=== PATIENT | female | born 1935 | race Caucasian/White ===

== ENCOUNTER 2020-06-20 05:16 | Emergency (ER) | payer MEDICARE, OTHER ==
[2020-06-20 07:33] LABS: HEMOGLOBIN 10.7 gm/dl (12.3-15.3); RED BLOOD COUNT 3.65 M/UL (4.00-5.10); WHITE BLOOD COUNT 6.3 K/UL (4.5-11.0)
[2020-06-20 07:53] LABS: BUN/CREATININE RATIO 18 (0-10)
== END 2020-06-20 10:45 | disposition home or self-care (01) ==
LOC: ER1 05:16
PROVIDERS: Family Medicine
DX: R53.83 Other fatigue (principal); R06.02 Shortness of breath; D64.9 Anemia, unspecified; E11.9 Type 2 diabetes mellitus without complications; I11.0 Hypertensive heart disease with heart failure; I50.9 Heart failure, unspecified; E03.9 Hypothyroidism, unspecified; K21.9 Gastro-esophageal reflux disease without esophagitis; E78.5 Hyperlipidemia, unspecified; Z79.4 Long term (current) use of insulin; Z85.9 Personal history of malignant neoplasm, unspecified; Z79.899 Other long term (current) drug therapy; Z87.19 Personal history of other diseases of the digestive system
CPT/HCPCS: 80053; 81001; 82550; 82553; 83874; 84439; 84443; 84484; 85025; 87086; 99285

== ENCOUNTER 2021-11-06 07:40 | Emergency (ER) | payer MEDICARE, OTHER ==
[2021-11-06 08:25] LABS: HEMOGLOBIN 10.2 gm/dl (12.3-15.3); RED BLOOD COUNT 3.48 M/UL (4.00-5.10); WHITE BLOOD COUNT 7.9 K/UL (4.5-11.0)
== END 2021-11-06 10:32 | disposition home or self-care (01) ==
LOC: ER1 07:40
PROVIDERS: Emergency Medicine
DX: M51.35 Other intervertebral disc degeneration, thoracolumbar region (principal); M50.321 Other cervical disc degeneration at C4-C5 level; R51.9 Headache, unspecified; E11.22 Type 2 diabetes mellitus with diabetic chronic kidney disease; N18.9 Chronic kidney disease, unspecified; I50.9 Heart failure, unspecified; D63.1 Anemia in chronic kidney disease; Z90.49 Acquired absence of other specified parts of digestive tract
CPT/HCPCS: 70450; 72125; 72128; 72131; 80053; 81001; 82550; 82553; 84484; 85025; 99284

== ENCOUNTER 2021-11-19 11:30 | Inpatient (IN) | payer MEDICARE, OTHER ==
[~2021-11-19] VITALS: Ht 157.5 cm; Wt 54.0 kg
[2021-11-19 13:05] LABS: RED BLOOD COUNT 3.04 M/UL (4.00-5.10); WHITE BLOOD COUNT 8.9 K/UL (4.5-11.0)
[2021-11-19] MEDS ORDERED: CLONIDINE HCL0.3 MG PO (17:22)
[2021-11-19] MEDS ORDERED: OMEPRAZOLE40 MG PO (17:24)
[2021-11-19] MEDS ORDERED: TERAZOSIN HCL10 MG PO (17:25)
[2021-11-19] MEDS ORDERED: HYDRALAZINE HC100 MG PO (17:26)
[2021-11-19] MEDS ORDERED: PRAVASTATIN SOD40 MG PO (17:26)
[2021-11-19] MEDS ORDERED: VITAMIN E100 UNI2 PO (17:27)
[2021-11-19] MEDS ORDERED: VITAMIN B-12500 MCG PO (17:27)
[2021-11-19] MEDS ORDERED: FOLIC ACID1 MG PO (17:27)
[2021-11-20 04:46] LABS: HEMOGLOBIN 9.3 gm/dl (12.3-15.3); RED BLOOD COUNT 3.11 M/UL (4.00-5.10); WHITE BLOOD COUNT 9.5 K/UL (4.5-11.0)
--- NOTE | 2021-11-20 14:43 | NUR ---
PATIENT HAS BP OF 218/57 WITH HEART RATE OF 57. BP WAS RETAKEN AND FOUND TO BE 214/55 WITH HEART RATE OF 55. PROVIDER NOTIFIED AND ORDERED 0.2 MG CLONADINE ONCE WITH A RECHECK OF BP IN ONE HOUR. WILL CONTINUE TO MONITOR.
[2021-11-21 02:37] LABS: HEMOGLOBIN 9.3 gm/dl (12.3-15.3); RED BLOOD COUNT 3.08 M/UL (4.00-5.10); WHITE BLOOD COUNT 11.3 K/UL (4.5-11.0)
[2021-11-22 06:30] LABS: WHITE BLOOD COUNT 8.8 K/UL (4.5-11.0)
[2021-11-22 06:32] LABS: RED BLOOD COUNT 2.67 M/UL (4.00-5.10)
[2021-11-22] MEDS ORDERED: CATAPRES 0.1MG0.1 MG PO ×2 (13:19→15:03)
[2021-11-22] MEDS ORDERED: ASPIRIN EC81 MG PO (13:19)
[2021-11-22] MEDS ORDERED: AMLODIPINE BESYL5 MG PO (13:19)
[2021-11-22] MEDS ORDERED: HYDRALAZINE HCL50 MG PO (15:03)
== END 2021-11-22 16:36 | disposition home or self-care (01) | DRG 312 ==
LOC: ER1 11:30 → CDU 15:10 → M/S 15:10
PROVIDERS: Nurse Practitioner; Physician Assistant; ADMIT Internal Medicine
PROC: B24BZZZ Ultrasonography of Heart with Aorta (ICD-10-PCS; principal; 2021-11-20)
DX: I95.1 Orthostatic hypotension (principal); N17.9 Acute kidney failure, unspecified; N18.4 Chronic kidney disease, stage 4 (severe); Z20.822 Contact with and (suspected) exposure to COVID-19; Z66 Do not resuscitate; I13.0 Hypertensive heart and chronic kidney disease with heart failure and stage 1 through stage 4 chronic kidney disease, or unspecified chronic kidney disease; E87.1 Hypo-osmolality and hyponatremia; R00.1 Bradycardia, unspecified; I25.10 Atherosclerotic heart disease of native coronary artery without angina pectoris; E87.5 Hyperkalemia; R29.6 Repeated falls; D63.1 Anemia in chronic kidney disease; I50.9 Heart failure, unspecified; E11.22 Type 2 diabetes mellitus with diabetic chronic kidney disease; E86.1 Hypovolemia; E03.9 Hypothyroidism, unspecified; I44.0 Atrioventricular block, first degree; I08.1 Rheumatic disorders of both mitral and tricuspid valves; Z79.82 Long term (current) use of aspirin; Z85.828 Personal history of other malignant neoplasm of skin; Z90.49 Acquired absence of other specified parts of digestive tract; Z88.8 Allergy status to other drugs, medicaments and biological substances; Z88.6 Allergy status to analgesic agent; Z82.3 Family history of stroke; Z80.9 Family history of malignant neoplasm, unspecified; Z83.3 Family history of diabetes mellitus
CPT/HCPCS: ECHO; 0240U; 36415; 70450; 71045; 80048; 80053; 81001; 81256; 82140; 82533; 82550; 82553; 82607; 82728; 82746; 82962; 83036; 83540; 83550; 83605; 83735; 83880; 84100; 84439; 84443; 84484; 84550; 85025; 87040; 87086; 93005; 93270; 93306; 96374; 97161; 97165; 99285

== ENCOUNTER 2021-12-08 10:24 | Inpatient (IN) | payer MEDICARE, OTHER ==
[~2021-12-08] VITALS: Ht 160 cm; Wt 65.6 kg
[~2021-12-08 10:24] MED LIST: AMLODIPINE BESYL5 MG PO; ASPIRIN EC81 MG PO; CATAPRES 0.1MG0.1 MG PO; CLONIDINE HCL0.3 MG PO; FOLIC ACID1 MG PO; HYDRALAZINE HC100 MG PO; HYDRALAZINE HCL50 MG PO; OMEPRAZOLE40 MG PO; PRAVASTATIN SOD40 MG PO; TERAZOSIN HCL10 MG PO; VITAMIN B-12500 MCG PO; VITAMIN E100 UNI2 PO
[2021-12-08 13:21] LABS: HEMOGLOBIN 7.6 gm/dl (12.3-15.3); RED BLOOD COUNT 2.52 M/UL (4.00-5.10); WHITE BLOOD COUNT 9.3 K/UL (4.5-11.0)
[2021-12-08] MEDS ORDERED: LEVOTHYROXINE75 MCG PO (15:37)
[2021-12-08] MEDS ORDERED: HUMALOG MI100 UNIT/3 SQ (15:37)
[2021-12-09 02:15] LABS: WHITE BLOOD COUNT 7.8 K/UL (4.5-11.0)
[2021-12-09 02:21] LABS: RED BLOOD COUNT 2.23 M/UL (4.00-5.10)
[2021-12-09 02:23] LABS: HEMOGLOBIN 6.6 gm/dl (12.3-15.3)
[2021-12-09 14:17] LABS: HEMOGLOBIN 8.5 gm/dl (12.3-15.3)
[2021-12-10 02:06] LABS: HEMOGLOBIN 7.8 gm/dl (12.3-15.3); WHITE BLOOD COUNT 7.4 K/UL (4.5-11.0)
[2021-12-10 02:09] LABS: RED BLOOD COUNT 2.58 M/UL (4.00-5.10)
[2021-12-11 03:07] LABS: HEMOGLOBIN 7.7 gm/dl (12.3-15.3); RED BLOOD COUNT 2.47 M/UL (4.00-5.10); WHITE BLOOD COUNT 7.3 K/UL (4.5-11.0)
[2021-12-12 04:36] LABS: HEMOGLOBIN 7.4 gm/dl (12.3-15.3); RED BLOOD COUNT 2.5 M/UL (4.00-5.10); WHITE BLOOD COUNT 6.9 K/UL (4.5-11.0)
[2021-12-13 02:19] LABS: HEMOGLOBIN 7.4 gm/dl (12.3-15.3); RED BLOOD COUNT 2.46 M/UL (4.00-5.10); WHITE BLOOD COUNT 7.1 K/UL (4.5-11.0)
[2021-12-14] MEDS ORDERED: BUMETANIDE1 MG PO (11:38)
[2021-12-14] MEDS ORDERED: COZAAR100 MG PO (11:38)
== END 2021-12-14 15:10 | disposition home or self-care (01) | DRG 682 ==
LOC: ER1 10:24 → PROG CARE 15:02 → CDU 15:02 → PROG CARE 20:01
PROVIDERS: Emergency Medicine; Internal Medicine; Internal Medicine Infectious Disease; Internal Medicine Nephrology; Physician Assistant; ADMIT Internal Medicine
DX: N17.9 Acute kidney failure, unspecified (principal); I50.33 Acute on chronic diastolic (congestive) heart failure; E87.1 Hypo-osmolality and hyponatremia; I13.0 Hypertensive heart and chronic kidney disease with heart failure and stage 1 through stage 4 chronic kidney disease, or unspecified chronic kidney disease; E87.2 Acidosis; E11.22 Type 2 diabetes mellitus with diabetic chronic kidney disease; I44.1 Atrioventricular block, second degree; E78.5 Hyperlipidemia, unspecified; I08.1 Rheumatic disorders of both mitral and tricuspid valves; K21.9 Gastro-esophageal reflux disease without esophagitis; K64.4 Residual hemorrhoidal skin tags; E03.9 Hypothyroidism, unspecified; D63.1 Anemia in chronic kidney disease; N18.4 Chronic kidney disease, stage 4 (severe); I25.10 Atherosclerotic heart disease of native coronary artery without angina pectoris; Z79.01 Long term (current) use of anticoagulants; Z79.82 Long term (current) use of aspirin; Z79.4 Long term (current) use of insulin; Z85.828 Personal history of other malignant neoplasm of skin; Z90.49 Acquired absence of other specified parts of digestive tract; Z88.8 Allergy status to other drugs, medicaments and biological substances; Z88.1 Allergy status to other antibiotic agents; Z82.3 Family history of stroke; Z82.49 Family history of ischemic heart disease and other diseases of the circulatory system; Z80.9 Family history of malignant neoplasm, unspecified
CPT/HCPCS: 36415; 36430; 71045; 80048; 80053; 82436; 82525; 82550; 82553; 82668; 82728; 82962; 83540; 83550; 83735; 83880; 83935; 84133; 84300; 84484; 84630; 85014; 85018; 85025; 85027; 86850; 86900; 86901; 86920; 93005; 93880; 96374; 99285; J0360; J7050; P9016; Q0177

== ENCOUNTER 2021-12-30 03:17 | Inpatient (IN) | payer MEDICARE, OTHER ==
[~2021-12-30] VITALS: Ht 160 cm; Wt 63.5 kg
[~2021-12-30 03:17] MED LIST changes: +BUMETANIDE1 MG PO; +COZAAR100 MG PO; +HUMALOG MI100 UNIT/3 SQ; +LEVOTHYROXINE75 MCG PO
[2021-12-30 03:37] LABS: HEMOGLOBIN 7.4 gm/dl (12.3-15.3); RED BLOOD COUNT 2.45 M/UL (4.00-5.10); WHITE BLOOD COUNT 10.2 K/UL (4.5-11.0)
[2021-12-30] MEDS ORDERED: BUMETANIDE2 MG PO (08:45)
[2021-12-30] MEDS ORDERED: ZAROXOLYN/DIULO5 MG PO (08:47)
[2021-12-31 06:35] LABS: WHITE BLOOD COUNT 8.2 K/UL (4.5-11.0)
[2021-12-31 06:38] LABS: RED BLOOD COUNT 2.11 M/UL (4.00-5.10)
[2021-12-31 06:40] LABS: HEMOGLOBIN 6.3 gm/dl (12.3-15.3)
[2022-01-01 03:59] LABS: HEMOGLOBIN 8.7 gm/dl (12.3-15.3); RED BLOOD COUNT 2.92 M/UL (4.00-5.10); WHITE BLOOD COUNT 7.8 K/UL (4.5-11.0)
[2022-01-01 08:09] LABS: COMPLEMENT C3, SERUM 84 mg/dL (82-167); COMPLEMENT C4, SERUM 20 mg/dL (12-38)
--- NOTE | 2022-01-01 14:15 | NUR ---
PATIENT HAD BP OF 177/60 PROVIDER NOTIFIED. AFTER CHANGE TO MEDIATIONS AND NURSING COMMUNICATION PROVIDER ORDERED IVP HYDRALAZINE. ONE HOUR POST ADMINISTRATION, PATIENT WAS FOUND TO HAVE BP OF 146/50. WCTM.
[2022-01-02 03:41] LABS: HEMOGLOBIN 8.7 gm/dl (12.3-15.3); RED BLOOD COUNT 2.86 M/UL (4.00-5.10)
[2022-01-02 14:10] LABS: A/G RATIO 1.3 (0.7-1.7); ALBUMIN 2.5 g/dL (2.9-4.4); ALPHA-1-GLOBULIN 0.2 g/dL (0.0-0.4); ALPHA-2-GLOBULIN 0.5 g/dL (0.4-1.0); BETA GLOBULIN 0.6 g/dL (0.7-1.3); GAMMA GLOBULIN 0.7 g/dL (0.4-1.8); IMMUNOGLOBULIN A, QN, SERUM 68 mg/dL (64-422); IMMUNOGLOBULIN G, QN, SERUM 727 mg/dL (586-1602); IMMUNOGLOBULIN M, QN, SERUM 77 mg/dL (26-217); M-SPIKE Not Observed g/dL (Not Observed); PROTEIN, TOTAL, SERUM 4.5 g/dL (6.0-8.5)
--- NOTE | 2022-01-02 15:00 | NUR ---
PATIENT HAD 2.3 SECOND PAUSE REPORTED BY TELEMETRY. HOSPITALIST NOTIFIED. STATED "CARDIOLOGY IS FOLLOWING HER, NOTIFY THEM." JEFFERSON VALADEZ CALLED AND NOTIFIED OF PATIENTS PAUSE. WILL CONTINUE TO MONITOR.
[2022-01-02 19:11] LABS: ANTI-DSDNA ANTIBODIES 3 IU/mL (0-9); ANTIMYELOPEROXIDASE (MPO) ABS <0.2 units (0.0-0.9); ANTIPROTEINASE 3 (PR-3) ABS <0.2 units (0.0-0.9); ATYPICAL PANCA <1:20 titer (Neg:<1:20); CYTOPLASMIC (C-ANCA) <1:20 titer (Neg:<1:20); PERINUCLEAR (P-ANCA) <1:20 titer (Neg:<1:20)
[2022-01-03 04:44] LABS: HEMOGLOBIN 9.3 gm/dl (12.3-15.3); RED BLOOD COUNT 3.12 M/UL (4.00-5.10); WHITE BLOOD COUNT 9.2 K/UL (4.5-11.0)
--- NOTE | 2022-01-03 05:38 | NUR ---
PATIENT WAS OBSERVED WALKING. BED ALARM WAS ACTIVATED WHEN PATIENT WENT BACK TO BED BECAUSE PATIENT HAS AN UNSTEADY GAIT. PATIENT BECAME UPSET AND STATED THAT SHE WAS CAPABLE OF WALKING WITHOUT FALLING. THE RISK OF FALLING AND THE USE OF THE BED ALARM WAS EXPLAINED AT LENGTH TO PATIENT. PATIENT STATED SHE WOULD REPORT ME FOR DOING SO. PATIENT VERBALIZED HER UNDERSTANDING OF THE EDUCATION GIVEN, AND SINCE PATIENT IS ALERT AND ORIENTED, I DEACTIVATED THE BED ALARM AND INSTRUCTED THE PAITENT TO CALL IF SHE NEEDED ASSISTANCE.
[2022-01-03 07:16] LABS: FOLATE (FOLIC ACID), SERUM >20.0 ng/mL (>3.0)
[2022-01-03 08:14] LABS: HEMOGLOBIN A1C 7.8 % (4.8-5.6)
[2022-01-03 08:14] LABS: FERRITIN 1054 ng/mL (15-150); IRON BIND.CAP.(TIBC) 149 ug/dL (250-450); IRON SATURATION 32 % (15-55); IRON, SERUM 47 ug/dL (27-139); UIBC 102 ug/dL (118-369)
[2022-01-03] MEDS ORDERED: OMNICEF 300 MG300 MG PO (09:41)
[2022-01-03] MEDS ORDERED: CARVEDILOL25 MG PO (09:41)
[2022-01-03] MEDS ORDERED: ALDACTONE 25MG25 MG PO (09:41)
[2022-01-03] MEDS ORDERED: ISOSORBIDE MONO30 MG PO (09:41)
[2022-01-03] MEDS ORDERED: BUMETANIDE1 MG PO (09:41)
[2022-01-03] MEDS ORDERED: CLONIDINE HCL0.3 MG PO (09:41)
[2022-01-03] MEDS ORDERED: TERAZOSIN HCL5 MG PO (09:41)
[2022-01-03] MEDS ORDERED: BUSPIRONE HCL5 MG PO (09:41)
== END 2022-01-04 12:21 | disposition home or self-care (01) | DRG 291 ==
LOC: ER1 03:17 → CDU 04:22 → MED SURG 4 04:22
PROVIDERS: Family Medicine; Internal Medicine; Internal Medicine Nephrology; ADMIT Internal Medicine
DX: I13.0 Hypertensive heart and chronic kidney disease with heart failure and stage 1 through stage 4 chronic kidney disease, or unspecified chronic kidney disease (principal); I50.33 Acute on chronic diastolic (congestive) heart failure; N17.9 Acute kidney failure, unspecified; N18.4 Chronic kidney disease, stage 4 (severe); N39.0 Urinary tract infection, site not specified; I16.0 Hypertensive urgency; D63.1 Anemia in chronic kidney disease; E03.9 Hypothyroidism, unspecified; F41.9 Anxiety disorder, unspecified; E11.65 Type 2 diabetes mellitus with hyperglycemia; B96.20 Unspecified Escherichia coli [E. coli] as the cause of diseases classified elsewhere; G89.29 Other chronic pain; I34.0 Nonrheumatic mitral (valve) insufficiency; E11.22 Type 2 diabetes mellitus with diabetic chronic kidney disease; F41.1 Generalized anxiety disorder; Z79.01 Long term (current) use of anticoagulants; Z90.49 Acquired absence of other specified parts of digestive tract; Z79.82 Long term (current) use of aspirin; Z85.828 Personal history of other malignant neoplasm of skin; Z79.4 Long term (current) use of insulin
CPT/HCPCS: 36415; 71045; 80048; 80053; 81001; 82436; 82550; 82553; 82570; 82607; 82728; 82746; 82784; 82962; 83036; 83520; 83540; 83550; 83735; 83880; 84100; 84133; 84155; 84156; 84165; 84300; 84439; 84443; 84484; 85025; 85610; 86140; 86160; 86225; 86256; 86334; 86850; 86900; 86901; 86920; 87077; 87086; 87186; 89050; 93005; 96372; 96374; 96375; 96376; 99285; G0378; J0360; J0696; J0885; J1644; J1756; P9016; Q0177